=== PATIENT | male | born 1950 | race Caucasian/White ===

== ENCOUNTER 2021-05-13 11:53 | Inpatient (IN) | payer MEDICARE, OTHER ==
[~2021-05-13] VITALS: Ht 182.9 cm; Wt 89.8 kg
[2021-05-13] MEDS ORDERED: APIX5TAB PO (12:27)
[2021-05-13] MEDS ORDERED: ONDANSETRON ODT 4 MG PO PRN (12:30)
[2021-05-13] MEDS ORDERED: DOCUSATE 100 MG CAPSULE PO PRN (12:30)
[2021-05-13] MEDS ORDERED: POLYETHYLENE GLYCOL 17 GM PACKET PO PRN (12:30)
[2021-05-13] MEDS ORDERED: BISACODYL 10 MG SUPP PR PRN (12:30)
[2021-05-13] MEDS ORDERED: DIVA250T14 PO (12:44)
[2021-05-13] MEDS ORDERED: LISI2.5T PO (12:44)
[2021-05-13] MEDS ORDERED: ATOR40TA78 PO (12:44)
[2021-05-13] MEDS ORDERED: THIA100T67 PO (12:44)
[2021-05-13] MEDS ORDERED: MELA5TAB14 PO (12:44)
[2021-05-13] MEDS ORDERED: ARIP10TA33 PO (12:44)
[2021-05-13] MEDS ORDERED: OMEP-110 PO (12:44)
[2021-05-13] MEDS ORDERED: METO25TA4 PO (12:44)
[2021-05-13] MEDS ORDERED: FLUT12AE INH (12:44)
[2021-05-13] MEDS ORDERED: MULT-658 PO (12:44)
[2021-05-13] MEDS ORDERED: FOLI1TAB32 PO (12:44)
[2021-05-13] MEDS ORDERED: ASPI-963 PO (12:44)
[2021-05-13] MEDS ORDERED: DIGO125T85 PO (12:44)
[2021-05-13] MEDS ORDERED: PLEASE ENTER HEIGHT AND WEIGHT MC SCH (16:30)
[2021-05-13 16:35] VITALS: BP 134/79
[2021-05-13 19:36] VITALS: BP 119/70
[2021-05-13] MEDS: MELATONIN 5 MG TABLET PO SCH (20:34)
[2021-05-13] MEDS: ATORVASTATIN 40 MG TABLET PO SCH (20:34)
[2021-05-13] MEDS: APIXABAN 5 MG TABLET PO SCH (20:34)
[2021-05-13] MEDS: METOPROLOL TARTRATE 25 MG TAB PO SCH (20:34)
[2021-05-13] MEDS: DIVALPROEX 250 MG TAB.ER.24H PO SCH (20:34)
[2021-05-13 20:36] VITALS: BP 130/87
[2021-05-14 06:56] LABS: CHOL/HDL RATIO 3.3; LDL/HDL RATIO 1.6 (0.5-3.0)
[2021-05-14 07:50] VITALS: BP 101/67
[2021-05-14] MEDS: DIVALPROEX 250 MG TAB.ER.24H PO SCH ×3 (09:20→20:09)
[2021-05-14] MEDS: FOLIC ACID 1 MG TABLET PO SCH (09:20)
[2021-05-14] MEDS: ARIPIPRAZOLE 10 MG TABLET PO SCH (09:20)
[2021-05-14] MEDS: APIXABAN 5 MG TABLET PO SCH ×2 (09:20→20:09)
[2021-05-14] MEDS: OMEPRAZOLE 20 MG CAPSULE.DR PO SCH (09:20)
[2021-05-14] MEDS: ASPIRIN 81 MG TABLET EC PO SCH (09:20)
[2021-05-14] MEDS: METOPROLOL TARTRATE 25 MG TAB PO SCH ×2 (09:21→20:09)
[2021-05-14] MEDS: THIAMINE 100MG TABLET PO SCH (09:21)
[2021-05-14] MEDS: MULTIVITAMIN 1 TABLET PO SCH (09:21)
[2021-05-14 14:37] LABS: MICROSCOPIC NOT IND
[2021-05-14 19:48] VITALS: BP 102/64
[2021-05-14] MEDS: ATORVASTATIN 40 MG TABLET PO SCH (20:09)
[2021-05-14] MEDS: MELATONIN 5 MG TABLET PO SCH (20:09)
[2021-05-15 07:22] VITALS: BP 119/78
[2021-05-15] MEDS: FOLIC ACID 1 MG TABLET PO SCH (08:58)
[2021-05-15] MEDS: LISINOPRIL 5 MG TABLET PO SCH (08:58)
[2021-05-15] MEDS: OMEPRAZOLE 20 MG CAPSULE.DR PO SCH (08:58)
[2021-05-15] MEDS: ASPIRIN 81 MG TABLET EC PO SCH (08:58)
[2021-05-15] MEDS: APIXABAN 5 MG TABLET PO SCH ×2 (08:59→20:09)
[2021-05-15] MEDS: MULTIVITAMIN 1 TABLET PO SCH (08:59)
[2021-05-15] MEDS: METOPROLOL TARTRATE 25 MG TAB PO SCH ×2 (08:59→20:09)
[2021-05-15] MEDS: DIVALPROEX 250 MG TAB.ER.24H PO SCH ×3 (08:59→20:09)
[2021-05-15] MEDS: DIGOXIN 0.125 MG TABLET PO SCH (08:59)
[2021-05-15] MEDS: THIAMINE 100MG TABLET PO SCH (08:59)
[2021-05-15] MEDS: ARIPIPRAZOLE 10 MG TABLET PO SCH (08:59)
[2021-05-15 19:25] VITALS: BP 108/74
[2021-05-15] MEDS: ATORVASTATIN 40 MG TABLET PO SCH (20:09)
[2021-05-15] MEDS: MELATONIN 5 MG TABLET PO SCH (20:09)
[2021-05-16 07:00] VITALS: BP 122/75
[2021-05-16] MEDS: OMEPRAZOLE 20 MG CAPSULE.DR PO SCH (07:35)
[2021-05-16] MEDS: LISINOPRIL 5 MG TABLET PO SCH (08:55)
[2021-05-16] MEDS: METOPROLOL TARTRATE 25 MG TAB PO SCH ×2 (08:55→20:41)
[2021-05-16] MEDS: DIVALPROEX 250 MG TAB.ER.24H PO SCH ×3 (08:55→20:41)
[2021-05-16] MEDS: FOLIC ACID 1 MG TABLET PO SCH (09:04)
[2021-05-16] MEDS: MULTIVITAMIN 1 TABLET PO SCH (09:04)
[2021-05-16] MEDS: ARIPIPRAZOLE 10 MG TABLET PO SCH (09:04)
[2021-05-16] MEDS: THIAMINE 100MG TABLET PO SCH (09:04)
[2021-05-16] MEDS: APIXABAN 5 MG TABLET PO SCH ×2 (09:04→20:40)
[2021-05-16] MEDS: ASPIRIN 81 MG TABLET EC PO SCH (09:04)
[2021-05-16] MEDS: DIGOXIN 0.125 MG TABLET PO SCH (09:07)
[2021-05-16] MEDS: ACETAMINOPHEN 325 MG TABLET PO PRN (16:23)
[2021-05-16 19:16] VITALS: BP 100/63
[2021-05-16] MEDS: ATORVASTATIN 40 MG TABLET PO SCH (20:40)
[2021-05-16] MEDS: MELATONIN 5 MG TABLET PO SCH (20:40)
[2021-05-17 07:18] VITALS: BP 115/75
[2021-05-17] MEDS: OMEPRAZOLE 20 MG CAPSULE.DR PO SCH (08:00)
[2021-05-17] MEDS: MULTIVITAMIN 1 TABLET PO SCH (08:50)
[2021-05-17] MEDS: THIAMINE 100MG TABLET PO SCH (08:50)
[2021-05-17] MEDS: APIXABAN 5 MG TABLET PO SCH ×2 (08:50→20:10)
[2021-05-17] MEDS: LISINOPRIL 5 MG TABLET PO SCH (08:50)
[2021-05-17] MEDS: METOPROLOL TARTRATE 25 MG TAB PO SCH ×2 (08:51→20:11)
[2021-05-17] MEDS: DIVALPROEX 250 MG TAB.ER.24H PO SCH ×3 (08:51→20:11)
[2021-05-17] MEDS: ASPIRIN 81 MG TABLET EC PO SCH (08:51)
[2021-05-17] MEDS: DIGOXIN 0.125 MG TABLET PO SCH (08:51)
[2021-05-17] MEDS: ARIPIPRAZOLE 10 MG TABLET PO SCH (08:51)
[2021-05-17] MEDS: FOLIC ACID 1 MG TABLET PO SCH (08:51)
[2021-05-17 19:59] VITALS: BP 118/75
[2021-05-17] MEDS: MELATONIN 5 MG TABLET PO SCH (20:10)
[2021-05-17] MEDS: ATORVASTATIN 40 MG TABLET PO SCH (20:11)
[2021-05-18 07:58] VITALS: BP 106/74
[2021-05-18] MEDS: OMEPRAZOLE 20 MG CAPSULE.DR PO SCH (08:15)
[2021-05-18] MEDS: DIVALPROEX 250 MG TAB.ER.24H PO SCH ×3 (09:12→20:26)
[2021-05-18] MEDS: FOLIC ACID 1 MG TABLET PO SCH (09:13)
[2021-05-18] MEDS: ASPIRIN 81 MG TABLET EC PO SCH (09:13)
[2021-05-18] MEDS: APIXABAN 5 MG TABLET PO SCH ×2 (09:13→20:26)
[2021-05-18] MEDS: DIGOXIN 0.125 MG TABLET PO SCH (09:14)
[2021-05-18] MEDS: METOPROLOL TARTRATE 25 MG TAB PO SCH ×2 (09:14→20:26)
[2021-05-18] MEDS: MULTIVITAMIN 1 TABLET PO SCH (09:14)
[2021-05-18] MEDS: ARIPIPRAZOLE 10 MG TABLET PO SCH (09:15)
[2021-05-18] MEDS: THIAMINE 100MG TABLET PO SCH (09:15)
[2021-05-18] MEDS: LISINOPRIL 5 MG TABLET PO SCH (09:32)
[2021-05-18] MEDS: ACETAMINOPHEN 325 MG TABLET PO PRN (14:52)
[2021-05-18] MEDS ORDERED: APIX5TAB PO (15:47)
[2021-05-18] MEDS ORDERED: DIVA250T PO (15:47)
[2021-05-18] MEDS ORDERED: MELA5TAB14 PO (15:47)
[2021-05-18] MEDS ORDERED: METO25TA35 PO (15:47)
[2021-05-18] MEDS ORDERED: LISI5TAB7 PO (15:47)
[2021-05-18] MEDS ORDERED: DIGO125T85 PO (15:47)
[2021-05-18] MEDS ORDERED: ASPI81TA45 PO (15:47)
[2021-05-18] MEDS ORDERED: FOLI1TAB32 PO (15:47)
[2021-05-18] MEDS ORDERED: ATOR40TA78 PO (15:47)
[2021-05-18] MEDS ORDERED: ARIP10TA33 PO (15:47)
[2021-05-18] MEDS ORDERED: OMEP-110 PO (15:47)
[2021-05-18] MEDS ORDERED: MULT-482 PO (15:47)
[2021-05-18 19:28] VITALS: BP 105/71
[2021-05-18] MEDS: ATORVASTATIN 40 MG TABLET PO SCH (20:26)
[2021-05-18] MEDS: MELATONIN 5 MG TABLET PO SCH (20:26)
[2021-05-19] MEDS ORDERED: OMEPRAZOLE 20 MG CAPSULE.DR PO SCH (07:30)
[2021-05-19 07:39] VITALS: BP 107/66
[2021-05-19] MEDS: DIGOXIN 0.125 MG TABLET PO SCH (08:30)
[2021-05-19] MEDS: APIXABAN 5 MG TABLET PO SCH (08:30)
[2021-05-19] MEDS: LISINOPRIL 5 MG TABLET PO SCH (08:31)
[2021-05-19] MEDS: DIVALPROEX 250 MG TAB.ER.24H PO SCH (08:31)
[2021-05-19] MEDS: THIAMINE 100MG TABLET PO SCH (08:31)
[2021-05-19] MEDS: FOLIC ACID 1 MG TABLET PO SCH (08:31)
[2021-05-19] MEDS: MULTIVITAMIN 1 TABLET PO SCH (08:31)
[2021-05-19] MEDS: ARIPIPRAZOLE 10 MG TABLET PO SCH (08:31)
[2021-05-19] MEDS: ASPIRIN 81 MG TABLET EC PO SCH (08:31)
[2021-05-19] MEDS: METOPROLOL TARTRATE 25 MG TAB PO SCH (08:32)
== END 2021-05-19 13:10 | disposition home or self-care (01) | DRG 885 ==
LOC: 3E 16:18
PROVIDERS: ADMIT Psychiatry & Neurology Psychosomatic Medicine; ATTEND Psychiatry & Neurology Psychosomatic Medicine
DX: F33.2 Major depressive disorder, recurrent severe without psychotic features (principal); I11.0 Hypertensive heart disease with heart failure; I50.22 Chronic systolic (congestive) heart failure; I48.20 Chronic atrial fibrillation, unspecified; D68.69 Other thrombophilia; F10.10 Alcohol abuse, uncomplicated; E78.5 Hyperlipidemia, unspecified; K59.00 Constipation, unspecified; G47.00 Insomnia, unspecified; I25.10 Atherosclerotic heart disease of native coronary artery without angina pectoris; K21.9 Gastro-esophageal reflux disease without esophagitis; Z88.8 Allergy status to other drugs, medicaments and biological substances; Z91.018 Allergy to other foods; Z79.899 Other long term (current) drug therapy; Z79.82 Long term (current) use of aspirin; Z82.3 Family history of stroke; Y90.9 Presence of alcohol in blood, level not specified
CPT/HCPCS: 36415; 71045; 80061; 81003; 93005